=== PATIENT | female | born 1990 | race Caucasian/White ===

== ENCOUNTER 2020-07-18 16:47 | Emergency (ER) | payer BC, SELFPAY ==
--- NOTE | ~2020-07-18 | US_ITS ---
EXAMINATION: US OB <=14 wk fetus w TV DATE: 07/18/2020 18:28 INDICATION: . Spotting. TECHNIQUE: Real-time transabdominal and transvaginal obstetric ultrasound. FINDINGS: No prior studies for comparison. The uterus measures 8.1 x 5.1 x 4.4 cm. There is an intrauterine gestational sac corresponding to 5 w flandreau 4 day gestation. No pole or yolk sac is identified. There is a small subchorionic hemorrhag e measuring 10 x 5 x 9 mm. There is a corpus luteal cyst of the right ovary measuring 2.4 cm. Left ov jony is unremarkable. IMPRESSION: 1. Intrauterine gestational sac corresponding to a 5 week 4 day gestation without identifiable pole or yolk sac, likely due to early gestational age. Recommend follow-up with serial quantitative b eta-hCG and ultrasound as clinically warranted. 2: Right corpus luteal cyst measuring 2.4 cm. Reviewed, dictated and finalized at location A. IMPRESSION: 1. Intrauterine gestational sac corresponding to a 5 week 4 day gestation witho ut identifiable pole or yolk sac, likely due to early gestational age. Re commend follow-up with serial quantitative beta-hCG and ultrasound as clinicall y warranted. 2: Right corpus luteal cyst measuring 2.4 cm.
[2020-07-18 17:35] VITALS: BP 109/75; PULSE 63; RESP 20; TEMP 36.6; O2SAT 100
[2020-07-18 17:43] LABS: Basophils Percent Auto 0.5 % (0.2-1.2); Eosinophils Percent Auto 0.5 % (0-4.4); Hematocrit 40.7 % (37.0-47.0); Hemoglobin 13.8 g/dL (12.0-15.0); Immature Granulocyte Absolute 0.01 K/mm3 (0.00-0.031); Immature Granulocyte Percent A 0.2 % (0-0.5); Lymphocytes Absolute Auto 1.51 K/mm3 (0.9-3.2); Mean Corpuscular HGB Conc 33.9 g/dl (32-36); Mean Corpuscular Hemoglobin 31.2 pg (26-34); Mean Corpuscular Volume 92.1 fl (80-100); Mean Platelet Volume 9.6 fl (7.4-10.4); Monocytes Absolute Auto 0.6 K/mm3 (0.1-0.6); Monocytes Percent Auto 9.2 % (2.6-8.5); Neutrophils Absolute Auto 4.1 K/mm3 (1.3-6.7); Neutrophils Percent Auto 65.6 % (45.5-73.1); Platelet Count Result 201 k/mm3 (150-375); Red Blood Count 4.42 M/mm3 (4.2-5.4); White Blood Count 6.3 K/mm3 (4.5-10.0)
--- NOTE | 2020-07-18 18:49 | ED.GENADULT ---
HPI - General Adult General Chief complaint: FAN BALANCER Stated complaint: 6 wks , spotting Time Seen by Provider: 07/18/20 18:32 Source: RN notes reviewed History of Present Illness HPI narrative: Patient presents to emergency department from home for vaginal bleeding. Patient states she is approximately 5 to 6 weeks noted some mild vaginal spotting yesterday with some dark brown blood with wiping. She noted a few drops of blood dripping in the toilet today and called her [facility] Dr. Olivia Martinez recommend she come to the ER for further evaluation. Patient is G1, P0 she denies any abdominal pain or cramping denies any other symptoms at this time Related Data Allergies Allergy/AdvReac Type Severity Reaction Status Date / Time Cephalosporins Allergy Mild Verified 07/02/14 11:46 Penicillins Allergy Mild Verified 03/14/09 12:47 Sulfa (Sulfonamide Allergy Mild Unverified 03/14/09 12:35 Antibiotics) sulfanilamide Allergy Unknown Verified 10/16/09 15:56 Review of Systems Review of Systems: Narrative: Gen.: Denies fevers or chills ENT: Denies congestion Respiratory: Denies shortness of breath or cough CV: Denies chest pain or palpitations GI: Denies abdominal pain nausea, emesis or diarrhea see HPI Musculoskeletal: Denies back pain or muscle pain Neuro: Denies numbness, tingling, weakness or focal weakness Skin: Denies rash Except as documented, all other systems reviewed and negative [facility] Past Medical History Medical History (Updated 07/18/20 @ 18:51 by Arjun Carmona DO) Patient denies significant medical history Family History Family History (Updated 10/25/15 @ 23:21 by DOCTOR UNKNOWN) Mother Patient's mother is in good health Father Patient's father is in good health Social History Social History (Updated 07/18/20 @ 18:50 by Arjun Carmona DO) Smoking status: Never smoker Exam Narrative: Exam Narrative: APPEARANCE: No acute distress, nontoxic, resting in bed EYES: EOMI HEENT: Normocephalic, atraumatic, OMM RESPIRATORY: No respiratory distress Clear to auscultation bilaterally with no rhonchi wheezing or rales. CARDIOVASCULAR: Regular rate and rhythm without murmurs rubs or gallops. ABDOMINAL: Soft, nontender, nondistended, no rebound or guarding MUSCULOSKELETAl: Moves all extremities. NEURO: Awake and alert. Following commands, speech normal, no focal deficits SKIN:: Warm, dry. No rashes lesions or abrasions PSYCHIATRIC: Normal affect/mood, Course Course Emergency Course: Discussed with Dr. Olivia Martinez presentation work-up agrees with plan for discharge with patient follow-up as outpatient repeat beta-hCG on Wednesday Discussed with patient results of workup and diagnosis. Discussed need for follow-up with primary care, proper use of medication, and reasons to return to the emergency department. Patient understands and agrees to current treatment plan Vital Signs Vital signs: Vital Signs Temperature 97.9 F 07/18/20 17:35 Pulse Rate 63 07/18/20 17:35 Respiratory Rate 20 07/18/20 17:35 Blood Pressure 109/75 07/18/20 17:35 Pulse Oximetry 100 07/18/20 17:35 Temperature 97.9 F 07/18/20 17:35 Pulse Rate 63 07/18/20 17:35 Respiratory Rate 20 07/18/20 17:35 Blood Pressure 109/75 07/18/20 17:35 Pulse Oximetry 100 07/18/20 17:35 Medical Decision Making Vital Signs Vital Signs: Vital Signs Temperature 97.9 F 07/18/20 17:35 Pulse Rate 63 07/18/20 17:35 Respiratory Rate 20 07/18/20 17:35 Blood Pressure 109/75 07/18/20 17:35 Pulse Oximetry 100 07/18/20 17:35 Temperature 97.9 F 07/18/20 17:35 Pulse Rate 63 07/18/20 17:35 Respiratory Rate 20 07/18/20 17:35 Blood Pressure 109/75 07/18/20 17:35 Pulse Oximetry 100 07/18/20 17:35 Lab Data Result diagrams: 07/18/20 17:37 Labs: Lab Results 07/18/20 07/18/20 07/18/20 Range/Units 17:36 17:37 17:37 WBC 6.3 (4.5-10.0) K/mm3 RBC 4.4
--- NOTE | 2020-07-18 18:49 | PC.NURSE ---
patient reports that she had a posative home test yesterday and had some spotting today
== END 2020-07-18 19:52 | disposition home or self-care (01) ==
PROVIDERS: Emergency Provider Emergency Medicine; PCP Internal Medicine
DX: O20.0 Threatened abortion (principal); O34.81 Maternal care for other abnormalities of pelvic organs, first trimester; N83.11 Corpus luteum cyst of right ovary; Z3A.01 Less than 8 weeks gestation of pregnancy
CPT/HCPCS: 36415; 76801; 76817; 84702; 85025; 85461; 99284

== ENCOUNTER 2020-07-24 09:36 | Outpatient (CLI) | payer BC, SELFPAY ==
--- NOTE | ~2020-07-24 | US_ITS ---
EXAMINATION: US OB <= 14 weeks fetus DATE: 07/24/2020 10:12 INDICATION: Vaginal bleeding TECHNIQUE: Real-time transabdominal and transvaginal obstetric ultrasound. FINDINGS: No prior studies for comparison. The uterus measures 9 x 5.2 x 7.5 cm. There is an intrauterine gestational sac, with pole ident ified. The crown rump length measures 0.41 cm, which correlates with a estimated gestational age of 6 weeks 1 day. heart tones are identified measuring 117 BPM. There is a right ovarian corpus luteal cyst measuring 2.5 cm. Left ovary not visualized. No free fluid in the pelvis. IMPRESSION: 1. SL IUP with an EGA of 6 weeks, 1 days (EDC by current ultrasound of 03/18/2021). 2: Right ovarian corpus luteal cyst measuring 2.5 cm. Reviewed, dictated and finalized at location B. IMPRESSION: 1. SL IUP with an EGA of 6 weeks, 1 days (EDC by current ultrasound of 03/18/20). 2: Right ovarian corpus luteal cyst measuring 2.5 cm.
== END 2020-07-24 09:37 | disposition home or self-care (01) ==
LOC: ANHIMG 09:39
PROVIDERS: PCP Internal Medicine; Visit Provider Obstetrics & Gynecology
DX: O20.0 Threatened abortion (principal); Z3A.01 Less than 8 weeks gestation of pregnancy; N83.11 Corpus luteum cyst of right ovary
CPT/HCPCS: 76801

== ENCOUNTER 2021-03-05 03:55 | Inpatient (IN) | payer BC, SELFPAY ==
[2021-03-05] VITALS (151 sets, daily range): BP systolic 91–149; BP diastolic 48–102; PULSE 56–142; RESP 18–20; TEMP 36.2–37.3; O2SAT 97–100; BMI 24.9
[2021-03-05 04:46] LABS: Basophils Percent Auto 0.2 % (0.2-1.2); Eosinophils Percent Auto 0.1 % (0-4.4); Hematocrit 35.7 % (37.0-47.0); Hemoglobin 12.1 g/dL (12.0-15.0); Immature Granulocyte Absolute 0.07 K/mm3 (0.00-0.031); Immature Granulocyte Percent A 0.8 % (0-0.5); Lymphocytes Absolute Auto 1.22 K/mm3 (0.9-3.2); Lymphocytes Percent Auto 13.9 % (18.3-44.2); Mean Corpuscular HGB Conc 33.9 g/dl (32-36); Mean Corpuscular Hemoglobin 30.2 pg (26-34); Mean Platelet Volume 11.5 fl (7.4-10.4); Monocytes Absolute Auto 0.7 K/mm3 (0.1-0.6); Monocytes Percent Auto 7.4 % (2.6-8.5); Neutrophils Absolute Auto 6.8 K/mm3 (1.3-6.7); Neutrophils Percent Auto 77.6 % (45.5-73.1); Platelet Count Result 191 k/mm3 (150-375); Red Blood Count 4.01 M/mm3 (4.2-5.4); Red Cell Distribution Width 12.7 % (11.5-14.5); White Blood Count 8.8 K/mm3 (4.5-10.0)
--- NOTE | 2021-03-05 04:46 | LDADM ---
This patient, Annabel Nguyen, was admitted to Labor/Delivery/Recovery 103 on 03/05/21 at 03:55. Plans for labor, pain management and were discussed with patient. Patient/family oriented to hospital policies and general routines including ID bracelet, bed and alarms, visiting hours, pain management, procedures, bathroom and other care routines, personal items, smoking policy, room service/diet and guest tray routines, infant security routines, and visiting hours. Patient/Family are encouraged to report perceived risks to care and to ask questions if they do not understand what they are told or what they should do. See OBIX for further documentation.
[2021-03-05] MEDS: LACTATED RINGERS 1,000 ML 125 ML IV CONT ×3 (04:50→09:07)
--- NOTE | 2021-03-05 05:38 | WPDANESEPPF ---
Anes - Initial Pre Proc Eval Procedure: labor epidural Date/Time: 03/05/21 05:38 Surgeon: Cricket Oro MD Pre Op Diagnosis: labor pain Pre Op Diagnosis: Labor Patient Data Age: 30 Gender: F Height: 1.65 m Weight: 68 kg Last Vital Signs Temp 36.8 C 03/05/21 04:35 Pulse 78 03/05/21 05:36 BP 122/82 03/05/21 05:36 Pulse Ox 97 03/05/21 05:37 Allergies Allergy/AdvReac Type Severity Reaction Status Date / Time Cephalosporins Allergy Mild Unknown Verified 03/01/21 12:41 Penicillins Allergy Mild Unknown Verified 03/01/21 12:41 Sulfa (Sulfonamide Allergy Mild Unknown Unverified 03/01/21 12:41 Antibiotics) sulfanilamide Allergy Unknown Unknown Verified 03/01/21 12:41 adhesive tape Allergy Rash Verified 03/01/21 12:41 latex Allergy Rash Verified 03/01/21 12:58 Home Medications Medication Instructions Recorded Confirmed Type buspirone [BuSpar] 5 mg PO DAILY 03/01/21 03/01/21 History prenat.vits,rodger,[id number] 1 tablet PO DAILY 03/01/21 03/01/21 History [ #2] Laboratory Tests 03/05/21 03/05/21 04:30 04:30 WBC 8.8 K/mm3 K/mm3 (4.5-10.0) RBC 4.01 M/mm3 L M/mm3 (4.2-5.4) Hgb 12.1 g/dL g/dL (12.0-15.0) Hct 35.7 % L % (37.0-47.0) MCV 89.0 fl fl (80-100) MCH 30.2 pg pg (26-34) MCHC 33.9 g/dl g/dl (32-36) RDW 12.7 % % (11.5-14.5) Plt Count 191 k/mm3 k/mm3 (150-375) MPV 11.5 fl H fl (7.4-10.4) Immature Gran % (Auto) 0.8 % H % (0-0.5) Neut % (Auto) 77.6 % H % (45.5-73.1) Lymph % (Auto) 13.9 % L % (18.3-44.2) Pender % (Auto) 7.4 % % (2.6-8.5) Eos % (Auto) 0.1 % % (0-4.4) Baso % (Auto) 0.2 % % (0.2-1.2) Lymph # (Auto) 1.22 K/mm3 K/mm3 (0.9-3.2) Pender # (Auto) 0.7 K/mm3 H K/mm3 (0.1-0.6) Eos # (Auto) 0.0 K/mm3 K/mm3 (0-0.3) Baso # (Auto) 0.0 K/mm3 K/mm3 (0.0-0.1) Abs Immat Gran (auto) 0.07 K/mm3 H K/mm3 (0.00-0.031) Absolute Neuts (auto) 6.8 K/mm3 H K/mm3 (1.3-6.7) Absolute Nucleated RBC 0.0 K/mm3 K/mm3 (0.0-0.012) Nucleated RBC % 0.0 % % (0.0-0.2) RPR Pending Patient hx anesthesia problems: none Family hx anesthesia problems: none Results Review: All pre-operative results and documents have been reviewed as part of the pre-operative evaluation. [facility] Past Medical History Medical History Patient denies significant medical history Family History Family History Mother Bladder infection HPV (human papilloma virus) infection Father Patient's father is in good health Diverticulitis Anxiety and depression Grandparent Kidney failure Acute rheumatoid arthritis Social History Social History Smoking status: Former smoker Tobacco type: cigarettes Substance use: current Last use: 02/23/21 Spiritual care concerns: No Anes - Eval Final PreProcedure Day of Procedure 03/05/21 05:38 Patient weight: normal Heart: regular rate and rhythm Lungs: clear to auscultation and normal air movement Airway: Mallampati scale class III Neurological: alert and oriented ASA classification: II Anesthetic plan: proceed Anesthesia type and monitoring: regional epidural and standard monitoring Results Review: All pre-operative results and documents have been reviewed as part of the pre-operative evaluation. Informed Consent: The patient's anesthetic plan and its attendant risks and benefits were discussed with the patient/family/POA. Questions were solicited and answers provided to the satisfaction of the patient/family/POA.
[2021-03-05 07:04] LABS: Rapid Plasma Reagin Non-Reactive (NonReactive)
--- NOTE | 2021-03-05 07:42 | PM.IMHP ---
H&P: HPI History of Present Illness Date/Time: 03/05/21 07:42 1-year-old prime at whose EDC is 03/09/2021 confirmed by 10 week ultrasound presents in active labor at term. She has a growth restricted baby but has had reassuring testing. She is negative for group B strep she actually came in labor early this morning with regular contractions Chief Complaint: labor at term Review of Systems Review of Systems: All systems reviewed & are unremarkable except as noted in HPI and below PMFSH Past Medical History Medical History Patient denies significant medical history Family History Family History Mother Bladder infection HPV (human papilloma virus) infection Father Patient's father is in good health Diverticulitis Anxiety and depression Grandparent Kidney failure Acute rheumatoid arthritis Social History Social History Smoking status: Former smoker Tobacco type: cigarettes Substance use: current Last use: 02/23/21 Spiritual care concerns: No Meds Home Medications and Allergies Home Medications Medication Instructions Recorded Confirmed Type buspirone [BuSpar] 5 mg PO DAILY 03/01/21 03/01/21 History prenat.vits,rodger,[id number] 1 tablet PO DAILY 03/01/21 03/01/21 History [ #2] Allergies Allergy/AdvReac Type Severity Reaction Status Date / Time Cephalosporins Allergy Mild Unknown Verified 03/01/21 12:41 Penicillins Allergy Mild Unknown Verified 03/01/21 12:41 Sulfa (Sulfonamide Allergy Mild Unknown Unverified 03/01/21 12:41 Antibiotics) sulfanilamide Allergy Unknown Unknown Verified 03/01/21 12:41 adhesive tape Allergy Rash Verified 03/01/21 12:41 latex Allergy Rash Verified 03/01/21 12:58 Vital Signs Vital Signs - 24 hr 03/05/21 04:16 03/05/21 04:30 03/05/21 04:35 Temperature 98.3 F Pulse Rate 64 70 Respiratory Rate Blood Pressure 136/94 H 149/100 H Pulse Oximetry 03/05/21 04:46 03/05/21 05:01 03/05/21 05:12 Temperature Pulse Rate 81 76 Respiratory Rate Blood Pressure 146/95 H 123/79 Pulse Oximetry 98 03/05/21 05:15 03/05/21 05:17 03/05/21 05:19 Temperature Pulse Rate 87 83 75 Respiratory Rate Blood Pressure 128/84 145/102 H 118/87 Pulse Oximetry 99 03/05/21 05:20 03/05/21 05:22 03/05/21 05:25 Temperature Pulse Rate 79 68 Respiratory Rate Blood Pressure 122/89 133/72 Pulse Oximetry 98 03/05/21 05:26 03/05/21 05:27 03/05/21 05:28 Temperature Pulse Rate 73 79 Respiratory Rate Blood Pressure 117/80 125/74 Pulse Oximetry 98 03/05/21 05:30 03/05/21 05:32 03/05/21 05:34 Temperature Pulse Rate 75 80 75 Respiratory Rate Blood Pressure 131/86 123/78 123/81 Pulse Oximetry 98 03/05/21 05:36 03/05/21 05:37 03/05/21 05:39 Temperature Pulse Rate 78 85 Respiratory Rate Blood Pressure 122/82 108/78 Pulse Oximetry 97 03/05/21 05:40 03/05/21 05:42 03/05/21 05:45 Temperature Pulse Rate 85 84 73 Respiratory Rate Blood Pressure 110/82 110/85 99/63 L Pulse Oximetry 99 03/05/21 05:46 03/05/21 05:47 03/05/21 05:48 Temperature Pulse Rate 76 79 Respiratory Rate Blood Pressure 105/74 115/73 Pulse Oximetry 98 03/05/21 05:50 03/05/21 05:52 03/05/21 05:54 Temperature Pulse Rate 79 111 H 91 Respiratory Rate Blood Pressure 112/74 111/88 116/86 Pulse Oximetry 98 03/05/21 05:56 03/05/21 05:57 03/05/21 06:00 Temperature Pulse Rate 89 61 Respiratory Rate Blood Pressure 109/74 122/77 Pulse Oximetry 98 03/05/21 06:02 03/05/21 06:07 03/05/21 06:12 Temperature Pulse Rate Respiratory Rate Blood Pressure Pulse Oximetry 99 100 98 03/05/21 06:15 03/05/21 06:17 03/05/21 06:22 Temperature 97.1 F L Pulse Rate 66 Respiratory
[2021-03-05 08:32] LABS: Barbiturate Screen Urine Negative (Negative); Benzodiazepines Screen Urine Negative (Negative)
[2021-03-05 08:35] LABS: Amphetamine Screen Urine Negative (Negative); Cannabinoid Screen Urine Positive (Negative); Cocaine Screen Urine Negative (Negative); Methadone Screen Urine Negative (Negative); Opiate Screen Urine Negative (Negative); Phencyclidine Screen Urine Negative (Negative)
[2021-03-05] MEDS: OXYTOCIN 30 UNITS/NS 500 ML 30 UNITS/500 ML BAG IV CONT (09:05)
[2021-03-05] MEDS: ONDANSETRON INJ 4 MG/2 ML VIAL IV PUSH (10:58)
--- NOTE | 2021-03-05 12:27 | PM.OBPNLAB ---
Pain Control Date/time seen: 03/05/21 12:27 Pain control: tolerating well and epidural Pelvic Exam Dilation (cm): 10 Amniotic membrane status: Ruptured
--- NOTE | 2021-03-05 13:51 | PM.OBPRVD ---
OB - Delivery Note Procedure Delivery date: 03/05/21 Intrapartal events: None Induction method: none Delivery monitor: external FHT Route of delivery: Episiotomy description: None Specimen: No Quantitative Blood Loss (ml): 59 Anesthesia type: Epidural Disposition: floor [place] Baby Date of : 03/05/21 Time of : 13:42 Weeks of gestation at delivery: 38 Infant gender: Male presentation: vertex position: Right Occiput Anterior Placenta delivery description: Spontaneous cord vessel description: 3 Vessels score one minute: 8 score five minutes: 9
[2021-03-05] MEDS: OXYTOCIN 30 UNITS/NS 500 ML 30 UNITS/500 ML BAG 125 UNITS IV CONT (14:21)
[2021-03-05] MEDS: IBUPROFEN 600 MG TABLET PO ×2 (15:30→23:13)
[2021-03-05] MEDS: BENZOCAINE 20% AER SPR (*SP) 56 GM CAN 1 SPRAY TOPICAL (15:31)
[2021-03-05] MEDS: WITCH HAZEL 40 PADS 1 PAD TOPICAL (15:31)
--- NOTE | 2021-03-05 16:15 | OBPPTRN ---
Patient transferred to post room # 291 via wheelchair. Support person present. Oriented to unit, room, information board, rooming in, admission packet and security measures. Patient verbalizes understanding.
[2021-03-06 04:30] VITALS: BP 118/80; PULSE 56; RESP 18; TEMP 36.4; O2SAT 98
[2021-03-06 05:29] LABS: Hematocrit 30.2 % (37.0-47.0); Hemoglobin 10.4 g/dL (12.0-15.0)
[2021-03-06] MEDS: MULTIVIT/MIN/PREN/FOL AC/IRON TABLET 1 TAB PO (07:48)
[2021-03-06] MEDS: IBUPROFEN 600 MG TABLET PO ×3 (07:48→20:59)
[2021-03-06 08:00] VITALS: PULSE 65; RESP 18; O2SAT 100
[2021-03-06 08:45] VITALS: BP 134/87; PULSE 58; RESP 18; TEMP 37; O2SAT 100
--- NOTE | 2021-03-06 09:30 | PC.NURSE ---
Consult with pt., mother reports is eagerly feeding with slight tenderness. This is mother?s 1st child to breastfeed. Reviewed feeding cues, frequencies, duration of feedings, feeding elimination flow sheet, and signs of adequate intake. Demonstrated stimulation techniques to wake for feeding. Reviewed signs of a correct latch, effective nursing and suck swallow ratio. Nipple care reviewed of lanolin after feedings and warm compresses as needed. Requested mother to call out for RN/LC assistance next feeding to assess latch due reported nipple tenderness. Instructed feeding should be initiated three hours from start of last feeding or if feeding cues are noted before. Mother voiced understanding of information shared.
--- NOTE | 2021-03-06 11:05 | PC.NURSE ---
Mother called out for assist with feeding, reporting is sleepy and not waking for feeding. . is able to freely thrust tongue past gum ridge and flange both lips. Skin is intact on both nipples, no redness and bruising noted, reports slight tenderness with feedings. . Reviewed feeding cues, frequencies, duration of feedings, feeding elimination flow sheet, and signs of adequate intake. Demonstrated stimulation techniques to wake for feeding. Assisted with infant to breast. Reviewed positioning/alignment in cross cradle, holding breast in ?U? hold and guided asymmetrical latch on. Reviewed rational for each. able to latch correctly within a few attempts. nursed eagerly with steady draws and occasional swallowing noted, some pausing noted. Reviewed signs of a correct latch, effective nursing and suck swallow ratio. Suggested mother stimulate while feeding to increase stimulation for milk supply, for increased intake and to assist with maintaining deep latch. Infant would slip to shallow latch causing tenderness. Demonstrated how to adjust latch more deeply while feeding as needed. Mother reports she can feel the difference in latch with no tenderness. Mother would release hold and would slip to shallow latch, advised to hold breast during entire feeding for the next several days to assist with maintaining latch. Nipple care reviewed of lanolin after feedings, warm compresses as needed. Instructed mother to call out for RN assistance if she is unable to latch infant for feeding or she has discomfort with nursing. Instructed feeding should be initiated three hours from start of last feeding or if feeding cues are noted before. Mother voiced understanding of information shared.
--- NOTE | 2021-03-06 11:05 | WPDANLDPN2 ---
Anes-Prog Note L&D Date/Time: 03/06/21 11:05 Comfortable throughout: labor and delivery Neuraxial method: epidural Epidural/Spinal procedure site: clean & non-tender Neuro status: Neuro function grossly intact. Cardiovascular status: normal Respiratory status: normal Airway patency: baseline Mental status: baseline Post-Op hydration status: normal Vital Signs: Last Vital Signs Temp 37.0 C 03/06/21 08:45 Pulse 58 L 03/06/21 08:45 Resp 18 03/06/21 08:45 BP 134/87 03/06/21 08:45 Pulse Ox 100 03/06/21 08:45 Pain score (VAS): 0 I/O: Intake & Output 03/05/21 03/06/21 03/06/21 23:59 07:59 15:59 Output Total 83 Balance -83 Post-procedural complaints: none Patient feedback: Patient satisfied with anesthetic care.
[2021-03-06 11:40] VITALS: BP 121/88; PULSE 65; RESP 18; TEMP 36.8; O2SAT 100
[2021-03-06 19:00] VITALS: BP 133/100; PULSE 60; RESP 18; TEMP 36.7
[2021-03-06 19:01] VITALS: BP 139/93
[2021-03-06] MEDS: DOCUSATE SODIUM 100 MG CAPSULE PO (21:00)
[2021-03-06] MEDS: LANOLIN (LANSINOH) 7.5 GM CREAM 1 APPLIC TOPICAL (23:06)
[2021-03-07] MEDS: ACETAMINOPHEN 325 MG TABLET 650 MG PO ×2 (04:51→11:23)
[2021-03-07] MEDS: IBUPROFEN 600 MG TABLET PO ×2 (04:52→11:22)
[2021-03-07 07:35] VITALS: BP 139/80; PULSE 60; RESP 18; TEMP 36.8; O2SAT 99
[2021-03-07 08:00] VITALS: PULSE 60; RESP 18; O2SAT 99
--- NOTE | 2021-03-07 10:08 | PM.DS ---
DS: Admitting Diagnosis Discharge Date 03/07/2021 Admitting Diagnosis 38 week in active labor with mild IUGR DS: Summary Hospital Course Hospital Course: Patient was admitted in active labor with an IUGR baby. She was actually scheduled to be induced that morning became in active labor. She underwent spontaneous vaginal delivery. Her hospital course was unremarkable. She remained afebrile. She was up, ambulating, breast-feeding, generally without complaints. Time Spent with Patient Time attestation: Total time spent providing and/or coordinating discharge services: Exam Const: General: no acute distress Eyes: General: appearance normal, both eyes and all related structures Neck: Neck: supple and no JVD Thyroid: thyroid normal Resp: Effort & Inspection: normal respiratory effort Auscultation: clear to auscultation bilaterally Cardio: Rate: regular rate Rhythm: regular rhythm GI: Inspection: non-distended GI Palp: Yes Soft to palpation, No Tenderness to palpation present (GI) and No Guarding due to palpation present (GI) Auscultation: normal bowel sounds : General: Yes bladder normal to palpation External Female Exam: normal external appearance Speculum Exam - Vagina: normal vaginal discharge and No vaginal bleeding Speculum Exam - Cervix: nontender Bimanual exam- vagina & uterus: bladder normal to palpation and No Cervical tenderness present OB/external & speculum: No vaginal bleeding Skin: General skin exam: no rashes or lesions noted Extrem: General: normal to inspection and no edema Psych: Mental Status: mental status grossly normal Affect: normal affect Discharge Plan Discharge Attending physician on discharge: Cricket rOo Discharging Clinician: Cricket Oro Patient Disposition: Home, Self-Care Activity: may shower, no straining and pelvic rest Diet: heart healthy Wound Care Instructions: follow printed instructions Patient Instructions: Antibiotic Form Stand Alone Forms: General Discharge Information Follow-up/Referrals: Cricket Oro MD [Physician] - Discharge Medications: Continued buspirone [BuSpar] 5 mg Tablet 5 mg PO DAILY RF: 0 #2 Tablet 1 tablet PO DAILY RF: 0 Date of admission: 03/05/21 03:55 Primary Care Provider: ClydeLázaro Admitting Provider: Cricket Oro Attending physician on admission: Cricket Oro Condition: Stable
--- NOTE | 2021-03-07 10:10 | PM.OBPNVD ---
OB - PN: Subj Subjective Date/time seen: 03/07/21 10:10 Patient comments: no complaints and pain well controlled baby status: doing well and nursing well OB - PN: Obj Data Labs CBC & Chem 7: 03/06/21 04:15 OB - PN A/P Plan day: 2 Plan: routine care, discharge home and follow up 6 weeks Time Spent With Patient Time: Total time spent is greater than 50% in coordination of care (as documented) at patient's floor/unit and/or counseling patient: Time with patient: less than 15 minutes Review of Systems Review of Systems: All systems reviewed & are unremarkable except as noted in HPI and below Exam Const: General: no acute distress Eyes: General: appearance normal, both eyes and all related structures Neck: Neck: supple and no JVD Thyroid: thyroid normal Resp: Effort & Inspection: normal respiratory effort Auscultation: clear to auscultation bilaterally Cardio: Rate: regular rate Rhythm: regular rhythm GI: Inspection: non-distended GI Palp: Yes Soft to palpation, No Tenderness to palpation present (GI) and No Guarding due to palpation present (GI) Auscultation: normal bowel sounds : General: Yes bladder normal to palpation External Female Exam: normal external appearance Speculum Exam - Vagina: normal vaginal discharge and No vaginal bleeding Speculum Exam - Cervix: nontender Bimanual exam- vagina & uterus: bladder normal to palpation and No Cervical tenderness present OB/external & speculum: No vaginal bleeding Skin: General skin exam: no rashes or lesions noted Extrem: General: normal to inspection and no edema Psych: Mental Status: mental status grossly normal Affect: normal affect
--- NOTE | 2021-03-07 10:15 | PC.NURSE ---
Consult with pt., observed mother is able to independently latch with appropriate positioning/alignment. Infant eagerly latches on first attempt with long rhythmical draws and frequent swallowing noted. She denies any nipple discomfort, is feeding as required and waking infant to feed if needed. Infant has had at least 8 effective feedings in the past 24 hours, and is currently meeting outcomes for weight, output, jaundice and feeding frequencies. Mother states she feels confident to continue effective at home. Reviewed transition to breast milk, signs of adequate intake, and engorgement/relief. Instructed to call ICP if intake/output less than required. Reviewed regular medications mother is taking. Information provided per Kelsea. Reviewed community resources on the [facility] website and in the Mom/Baby guide. Information on outpatient services provided. Mother has no further questions at this time. Instructed feeding should be initiated three hours from start of last feeding or if feeding cues are noted before until seen by ICP. Mother voiced understanding of information shared.
[2021-03-07] MEDS: MULTIVIT/MIN/PREN/FOL AC/IRON TABLET 1 TAB PO (11:24)
[2021-03-07] MEDS: TETANUS,DIPHTHERIA,AC PERTUSSIS ADULT (0.5 ML) BOOSTRIX IM (11:24)
--- NOTE | 2021-03-07 12:15 | PC.NURSE ---
Patient was given the opportunity to view the discharge video Mother & Baby Care, The First Two Weeks and to ask questions. Patient declined viewing the video and has been given the mother/baby guide for home reference.
[2021-03-08 10:44] VITALS: BP 127/88; PULSE 74; RESP 20; TEMP 37.1; O2SAT 100
== END 2021-03-07 13:33 | disposition home or self-care (01) | DRG 807 ==
LOC: ANHLDR 04:05 → ANHOB2 16:17
PROVIDERS: Admitting Provider Obstetrics & Gynecology; PCP Internal Medicine; Visit Provider Obstetrics & Gynecology
DX: O36.5930 Maternal care for other known or suspected poor fetal growth, third trimester, not applicable or unspecified (principal); Z37.0 Single live birth; Z3A.38 38 weeks gestation of pregnancy; Z87.891 Personal history of nicotine dependence
CPT/HCPCS: 36415; 80307; 85014; 85018; 85025; 86592; 86850; 86900; 86901; 90715; A9270; J2405; J2590; J2795; J7120